=== PATIENT | female | born 1955 | race Caucasian/White ===

== ENCOUNTER 2016-07-25 17:56 | Inpatient (IN) | payer OTHER, SELFPAY ==
--- NOTE | ~2016-07-25 | CR72 ---
[facility] A Service of [facility] & [facility] RADIOLOGY TEXT RESULTS PATIENT: CYNTHIA PEARSON LOCATION: [facility] : 55 UNIT #: [id number] AGE: [address]: Rod Wilks MD SEX: F ORDER DR: [id number] [facility] [address] [place], [place] [address] [id number] MR#: [id number] Acc #: [id number] NAME: CYNTHIA PEARSON. : 1955 SEX: F STUDY DATE/TIME: 07/25/2016 18:03 UNIT: [facility] ROOM: STUDY DESCRIPTION: CR Chest Single View Portable Attending Physician: Rod Wilks Ordering Physician: Ed Doc Enmanuel Barroso Primary Care Physician: Ubaldo Skinner M.D. MEDICAL IMAGING REPORT This report is preliminary unless electronic signature is present EXAM Portable chest 07/25 HISTORY Shortness of air and congestion for the last 3 days. History of thyroid cancer and smoking. TECHNIQUE/COMPARISON AP portable chest compared with 03/15/2016 FINDINGS Cardiac and mediastinal contours remain normal. The lungs are clear except for scattered granulomatous calcifications. No pneumothorax seen. IMPRESSION No active disease and no change from prior. Dictated by... Sai Harden Jr., M.D. THIS IS AN ELECTRONICALLY VERIFIED REPORT Sai Harden Jr., M.D. at 07/25/2016 10:27 PM RLK/shae TD: 07/25/2016 21:13 JOB #: [id number] MEDICAL IMAGING REPORT Page 1 of 1 COPY
--- NOTE | ~2016-07-25 | HP ---
Unit #: [id number] #: [id number] Patient: CYNTHIA PEARSON [id number] [address] [place], [place] [address] [id number] I MR#: [id number] NAME: CYNTHIA PEARSON. ROOM: 341 Age: 61 Sex: F Admission Date: 07/25/2016 : 1955 Attending Physician: Candida Ogden M.D. Primary Care Physician: Ubaldo Skinner M.D. HISTORY AND PHYSICAL CHIEF COMPLAINT COPD exacerbation with respiratory failure. HISTORY This pleasant 61-year-old female with COPD, obstructive sleep apnea, is admitted for COPD exacerbation and respiratory failure. The patient states that she was admitted to [facility], I believe over a month ago, for respiratory failure requiring mechanical ventilation. Was in her usual state of health until three days prior to admission when she began to experience increasing symptoms of acid reflux with a cough of bubbly sputum. Developed increasing shortness of breath and bronchospasm, particularly last evening, with chest tightness with inspiration. Presented to this emergency department extremely short of breath late this afternoon, required BiPAP initially. Was treated with Duo-Nebs, Solu-Medrol, Pepcid and currently is feeling much improved. Is off the BiPAP. Does still have expiratory wheezes bilaterally. Chest x-ray shows no acute disease. PAST MEDICAL HISTORY 1. COPD requiring mechanical ventilation. 2. GERD. 3. Irritable bowel syndrome. 4. Bronchoscopy in the remote past revealing bronchiectasis by Dr. Arevalo. 5. Hypothyroidism, status post thyroidectomy for thyroid cancer. 6. Total abdominal hysterectomy. 7. Breast reduction surgery. 8. BTL. 9. Arthroscopic knee surgery. 10. Status post T and A. 11. Ventral hernia repair 05/2016 with delayed healing due to steroids. ALLERGIES Keflex, codeine and amoxicillin. HOME MEDICATIONS 1. Albuterol inhaler. 2. Nebulizer. 3. Anoro Ellipta 62.5/25 mcg, one puff daily. 4. Ativan 0.5 mg t.i.d. p.r.n. 5. Theophylline 200 mg daily. 6. Pepcid 20 mg b.i.d. 7. Synthroid 0.112 mg daily. Unit #: [id number] #: [id number] Patient: CYNTHIA PEARSON FAMILY HISTORY Lung cancer, thyroid disease, CAD. SOCIAL HISTORY The patient lives alone. She stopped smoking six months ago, does not drink alcohol or use illicit drugs. REVIEW OF SYSTEMS Notable for increasing shortness of breath, bronchospasms, acid reflux, thyroid cancer, COPD, GERD, IBS, LEESA, above mentioned surgeries. All other systems were reviewed and are otherwise negative. PHYSICAL EXAMINATION GENERAL APPEARANCE: Pleasant, obese 61-year-old female, currently in no acute distress. VITAL SIGNS: Temperature 97.5, pulse 94, respirations 16, blood pressure 140/73. O2 saturation currently is 92% on 2L of oxygen. HEENT: Eyes PERRLA. Extraocular muscles are intact. Pharynx is benign. NECK: Supple without adenopathy or thyromegaly. CHEST: Expiratory wheezes bilaterally. CARDIAC: Normal S1 and S2 without S3, S4 or murmur. ABDOMEN: Bowel sounds are present. No hepatosplenomegaly, tenderness or masses. Well-healed scar noted midline below the umbilicus. EXTREMITIES: Without clubbing, cyanosis or edema. Pedal pulses are present. NEUROLOGIC EXAM: The patient is awake, alert, oriented. Cranial nerves are intact. Equal strength throughout. DIAGNOSTIC STUDIES LABORATORY: Hematocrit is 45.8, white blood count is 12.2, normal platelet count. SMA-12 - glucose is 114. BMP is normal. Cardiac markers are negative. IMAGING: Chest x-ray - no acute disease. CARDIOVASCULAR: EKG - patient declined. ASSESSMENT 1. Chronic obstructive pulmonary disease exacerbation, likely related to acid reflux. Symptoms are worse at night. The patient has associated acute hypoxic respiratory failure with her chronic obstructive pulmonary disease exacerbation. 2. Gastroesophageal reflux disease, on Pepcid. 3. Obstructive sleep apnea, on CPAP. 4. Recent admission to [facility] over a month ago for respiratory failure requiring mechanical ventilation. 5. Irritable bowel syndrome. 6. Thyroidectomy for thyroid cancer. PLANS 1. Proton pump inhibitor. 2. Steroids, Ellipta, Duo-Nebs, auto-PAP and pulmonary to see. 3. DVT prophylaxis. 4. Request old records. 5. Would recommend outpatient followup with GI at some point. Unit #: [id number] #: [id number] Patient: CYNTHIA PEARSON Dictated by Candida Ogden M.D. AML/df TD: 07/26/2016 05:16 JOB #: [id number] HISTORY AND PHYSICAL Page 1 of 1 X Candida Ogden MD HISTORY AND PHYSICAL
--- NOTE | ~2016-07-25 | CR72 ---
[facility] A Service of [facility] & [facility] RADIOLOGY TEXT RESULTS PATIENT: CYNTHIA PEARSON LOCATION: [facility] 341- : 55 UNIT #: [id number] AGE: [address]: Rajani Andujar MD SEX: F ORDER DR: [id number] [facility] [address] [place], [place] [address] [id number] I MR#: [id number] Acc #: [id number] NAME: CYNTHIA PEARSON. : 1955 SEX: F STUDY DATE/TIME: 07/27/2016 5:15 UNIT: [address] ROOM: [facility] STUDY DESCRIPTION: CR Chest Single View Portable Attending Physician: Rajani Andujar M.D. Ordering Physician: Sagrario Gonzalez M.D. Primary Care Physician: Ubaldo Skinner M.D. MEDICAL IMAGING REPORT This report is preliminary unless electronic signature is present EXAM AP portable chest 07/27/2016 HISTORY COPD. Respiratory failure. Cough. Shortness of breath. Symptoms began 07/25/2016. History of smoking, quit 6 months ago. History of thyroid cancer. COMPARISON AP portable chest 07/25/2016. FINDINGS Heart size is upper limits normal but stable. Pulmonary vascular distribution is within normal limits. No pleural effusion, pneumothorax, or acute lung consolidations are identified. Benign calcified granulomatous changes. IMPRESSION No acute cardiopulmonary findings. Dictated by... Jennifer Uriostegui M.D. THIS IS AN ELECTRONICALLY VERIFIED REPORT Jennifer Uriostegui M.D. at 07/27/2016 10:06 PM LISA/gene TD: 07/27/2016 11:27 JOB #: [id number] MEDICAL IMAGING REPORT Page 1 of 1 COPY
--- NOTE | ~2016-07-25 | DS ---
Unit #: [id number] #: [id number] Patient: CYNTHIA OLVERA [id number] [address] [place], [place] [address] [id number] I MR#: [id number] NAME: CYNTHIA OLVERA. ROOM: 341 Age: 61 Sex: F Admission Date: 07/25/2016 : 1955 Discharge Date: 07/27/2016 Attending Physician: Rajani Andujar M.D. Primary Care Physician: Ubaldo Skinner M.D. DISCHARGE SUMMARY PRINCIPAL DIAGNOSES 1. Acute hypoxic respiratory failure secondary to #2. 2. Acute exacerbation of COPD secondary to #3. 3. Severe gastroesophageal reflux disease with likely aspiration of gastric acid. 4. Hypothyroidism with decreased TSH of 0.12, free T3 and free T4 currently pending. 5. Obstructive sleep apnea, maintained on CPAP. 6. Anxiety. 7. Obesity with BMI of 38. 8. Irritable bowel syndrome. CONSULTATIONS 1. Dr. Gonzalez, pulmonology. PROCEDURE(S) Chest x-ray on July 25, 2016, with no acute findings. HOSPITAL COURSE Ms. Olvera is a 61-year-old female with a history of COPD who presents to Emergency Department with shortness of breath primarily happening at night. Please refer to H and P for further details. The patient's symptoms tend to occur at night, and she notices significant reflux prior to the onset of shortness of breath. The patient was mildly hypoxic in the Emergency Department, and chest x-ray was unremarkable. She was subsequently admitted. The patient was placed on IV steroids and had significant improvement in her wheezing, and her respiratory failure resolved rather quickly. She reports to me that she has significant reflux at night. I suspect she is having aspiration of gastric acid. She had been placed on Protonix and her symptoms appeared to have improved. The patient was seen in consultation by Dr. Gonzalez. Theophylline level was low, and the patient refused viral respiratory panel. The patient is complaining of significant fatigue, but vitamin B12 levels are in the high 400s, and TSH is actually low at 0.12. Free T3 and free T4 are currently pending. The patient is significantly overweight, and I think this is mostly likely course of her fatigue. This could be followed up by her primary physician. CONDITION ON DISCHARGE Stable. Unit #: [id number] #: [id number] Patient: CYNTHIA OLVERA DISCHARGE STATUS Discharged to home. DISCHARGE MEDICATIONS 1. Protonix 40 mg b.i.d. 2. Prednisone 20-mg tablets 2 tablets for 2 days and 1 tab for 2 days, then discontinue. 3. Levothyroxine 112 mcg p.o. daily. 4. Theophylline 200 mg daily. 5. Ativan 0.5 mg t.i.d. 6. Anoro Ellipta 62.5/25 mcg daily per HFA, 1 puff every 4 hours p.r.n. for shortness of breath. DISCHARGE INSTRUCTIONS The patient was instructed to follow heart healthy, low-calorie diet. She can increase her activity as tolerated. FOLLOWUP The patient will follow up with her primary connection worker, as previously scheduled. She is to follow up with Dr. Skinner in the next 6 weeks for TSH. Dictated by... Rajani Andujar M.D. CEM/madhuri TD: 07/28/2016 10:33 JOB #: [id number] DISCHARGE SUMMARY Page 1 of 1 X Rajani Andujar MD X DISCHARGE SUMMARY
[2016-07-25 16:33] LABS: BASOPHIL# 0.1 X10e3 (0-0.3); BASOPHIL% 0.7 % (0-2.5); EOSINOPHIL# 0.6 X10e3 (0-0.7); EOSINOPHIL% 5.3 % (0.0-7.0); HEMATOCRIT 45.8 % (35.0-45.0); HEMOGLOBIN 14.6 gm/dL (12.0-16.0); LYMPHOCYTE# 2.5 X10e3 (1.0-3.5); LYMPHOCYTE% 20.9 % (17.0-45.0); MEAN CELL VOLUME 84.8 FL (83-96); MEAN CORPUSCULAR HEMOGLOBIN 27.1 PG (28-34); MEAN CORPUSCULAR HGB CONC 31.9 g/dL (30-36); MEAN PLATELET VOLUME 8.6 FL (6.5-11.5); MONOCYTE# 0.9 X10e3 (0-1.0); MONOCYTE% 7.3 % (3.0-12.0); NEUTROPHIL% 65.8 % (40-75); PLATELET COUNT 284 X10e3 (140-420); RED CELL DISTRIBUTION WIDTH 16.7 % (11.0-15.5); WHITE BLOOD COUNT 12.2 X10e3 (4.0-10.5)
[2016-07-25 16:39] LABS: DIFF IND NO
[2016-07-25 17:00] LABS: ALBUMIN SERUM 4.1 g/dL (3.5-5.0); BILIRUBIN, DIRECT 0.1 mg/dL (0.0-0.2); BILIRUBIN,INDIRECT 0.4 mg/dL (0.0-0.9); BILIRUBIN,TOTAL 0.5 mg/dL (0.2-2.0); BUN/CREATININE RATIO 12.5; CALCIUM SERUM 9.2 mg/dL (8.4-10.2); CREATININE SERUM 0.8 mg/dL (0.6-1.4); GLOM FILT RATE Estimated 79.6 mL/min (>60); POTASSIUM 3.9 mmol/L (3.5-5.1); PROTEIN TOTAL SERUM 7.3 g/dL (6.0-8.3)
[2016-07-25 17:22] LABS: POC - CKMB 1.7 ng/mL (0.0-7.9); POC - TROPONIN <0.05 ng/mL (<=0.05)
[~2016-07-25 17:56] MED LIST: ACETAMINOPHEN PO; ALLEGRA PO; ALPRAZOLAM PO; AMOXICILLIN; ASPIRIN PO; AZMACORT20 GM; CELEBREX PO; CLARITIN10 MG PO; COMBIVENT INH14.7 GM; COMBIVENT MININEB INH; COMBIVENT RESPIM4 GM; DICYCLOMINE HCL20 MG; DICYCLOMINE HCL20 MG PO; DOXYCYCLINE PO; DUONEB 2.5-0.5 M3 ML; DUONEB 2.5-0.5 M3 ML NEB; FAMOTIDINE PO; FORADIL12 MCG; FORADIL12 MCG NEB; KCL PO; LASIX PO; NEXIUM; NEXIUM PO; NYSTATIN1 EAC1 TOP; OXYGEN; POLYETHYLENE G527 GM; PREDNISONE; PREDNISONE PO; PULMICORT200 MCG/AE INH; SINGULAIR; SINGULAIR PO; SYNTHROID; SYNTHROID PO; ULTRAM PO; VICODIN 5/500 T1 TAB PO; VISTARIL PO; VOLTAREN100 GM TOP; VOLTAREN75 MG PO; ZELNORM; ZELNORM PO; ZITHROMAX; ZOLOFT PO
[2016-07-25] MEDS ORDERED: FAMOTIDINE20 M1 PO (19:36)
[2016-07-25] MEDS ORDERED: SYNTHROID112 MCG PO (19:36)
[2016-07-25] MEDS ORDERED: ATIVAN0.5 MG PO (19:37)
[2016-07-25] MEDS ORDERED: THEO-DUR200 MG PO (19:37)
[2016-07-25] MEDS ORDERED: PROAIR HFA8.5 GM INH (19:38)
[2016-07-25] MEDS ORDERED: ANORO ELLIPTA1 EACH INH (19:38)
[2016-07-25 20:54] LABS: POC - TROPONIN <0.05 ng/mL (<=0.05)
[2016-07-26 17:59] LABS: THEOPHYLLINE <2 ug/dL (10-20)
[2016-07-26 18:04] LABS: PROCALCITONIN <0.05 NG/ML
[2016-07-27] MEDS ORDERED: PREDNISONE10 M1 PO (12:56)
[2016-07-27] MEDS ORDERED: PROTONIX PO (12:57)
== END 2016-07-27 13:31 | disposition home or self-care (01) | DRG 391 ==
LOC: CED 17:56 → CEDOF 22:40 → C3A PCU 07-26 00:21
PROVIDERS: Emergency Medicine; Internal Medicine Pulmonary Disease
DX: K21.9 Gastro-esophageal reflux disease without esophagitis (principal); J96.01 Acute respiratory failure with hypoxia; J44.1 Chronic obstructive pulmonary disease with (acute) exacerbation; E66.9 Obesity, unspecified; Z68.38 Body mass index [BMI] 38.0-38.9, adult; K58.9 Irritable bowel syndrome, unspecified; F41.9 Anxiety disorder, unspecified; G47.33 Obstructive sleep apnea (adult) (pediatric); E89.0 Postprocedural hypothyroidism; Z85.850 Personal history of malignant neoplasm of thyroid; Z90.710 Acquired absence of both cervix and uterus; Z88.1 Allergy status to other antibiotic agents; Z88.5 Allergy status to narcotic agent; Z87.891 Personal history of nicotine dependence; R53.83 Other fatigue
CPT/HCPCS: 36415; 71010; 80048; 80076; 80198; 82308; 82553; 82607; 83880; 84443; 84484; 85025; 94640; 94660; 94760; 96374; 96375; 99285; C9113; J1650; J2920; J2930